=== PATIENT | female | born 1990 | race Caucasian/White ===

== ENCOUNTER 2017-04-12 21:29 | Emergency (ER) | payer SELFPAY, OTHER ==
[2017-04-12 22:12] LABS: BILIRUBIN NEGATIVE (NEGATIVE); BLOOD 3+ Ery/uL (NEGATIVE); CLARITY CLOUDY (CLEAR); COLOR YELLOW (YELLOW); GLUCOSE (U) NORMAL (NORMAL); KETONE (U) NEGATIVE (NEGATIVE); LEUKOCYTES 1+ Leu/uL (NEGATIVE); NITRITE NEGATIVE (NEGATIVE); PROTEIN TRACE (LOW) mg/dL (NEGATIVE); UROBILINOGEN 0.2 mg/dL (0.2-1.0)
[2017-04-12 22:18] LABS: BACTERIA 1+; MUCOUS MODERATE; SQUAMOUS EPITHELIAL CELLS 20-50
[2017-04-12 22:19] LABS: AMORPHOUS URATES CRYSTALS MODERATE
[2017-04-12 22:33] LABS: BASOPHIL(M) 1 % (0-2); EOSINOPHIL(M) 3 % (0-5); HCT 35.1 % (37.0-47.0); HGB 12.1 g/dl (12.5-16.0); LACTIC ACID 0.9 mmol/L (0.5-2.2); LYMPHOCYTE(M) 49 % (15-48); MCH 31.5 pg (25.0-31.0); MCHC 34.5 g/dL (32.0-36.0); MCV 91.4 fL (78.0-100.0); MONOCYTE(M) 5 % (0-12); NEUTROPHILS(M) 42 % (41-80); PLT 219 K/uL (150-400); RBC 3.84 M/uL (4.20-5.40); TOTAL CELL COUNT 100; WBC 6.5 K/uL (4.0-10.5)
[2017-04-12 22:34] LABS: ANISOCYTOSIS MODERATE; PLATELET ESTIMATE NORMAL; PLATELET MORPHOLOGY NORMAL; POIKILOCYTOSIS SLIGHT; SMUDGE CELLS RARE
[2017-04-12 22:36] LABS: ALBUMIN 4.3 g/dL (3.5-5.0); BILIRUBIN - TOTAL 0.3 mg/dL (0.1-1.0); GLOBULIN (CALCULATION) 2.3 g/dL (2.2-4.2); POTASSIUM 4.1 mmol/L (3.5-5.1); TOTAL PROTEIN 6.6 g/dL (6.4-8.3)
== END 2017-04-12 23:55 | disposition home or self-care (01) ==
LOC: FER 21:29
PROVIDERS: Emergency Medicine
DX: N39.0 Urinary tract infection, site not specified (principal); G43.909 Migraine, unspecified, not intractable, without status migrainosus; F41.9 Anxiety disorder, unspecified; Z79.899 Other long term (current) drug therapy; Z88.0 Allergy status to penicillin; Z88.6 Allergy status to analgesic agent; Z88.8 Allergy status to other drugs, medicaments and biological substances; Z88.5 Allergy status to narcotic agent; Z87.891 Personal history of nicotine dependence
CPT/HCPCS: 36415; 80053; 81001; 83605; 83690; 87088; 87210; J2405